=== PATIENT | male | born 1980 ===

== ENCOUNTER 2018-05-04 12:39 | Outpatient (CLI) | payer OTHER | END 2018-05-04 12:40 | disposition home or self-care (01) | LOC: SONOGRAMA 12:39 | DX: M25.521 Pain in right elbow (principal) ==

== ENCOUNTER 2024-12-05 13:36 | Emergency (ER) | payer OTHER ==
[~2024-12-05] VITALS: Ht 172.7 cm; Wt 79.4 kg
[2024-12-05] MEDS ORDERED: GUAIFENESIN/DEXTROMETHORPHAN 100MG/10ML BLIST.PACK PO ONE (15:15)
[2024-12-05 16:17] LABS: HEMATOCRIT 47.1 % (39.0-48.0); HEMOGLOBIN 15.5 g/dL (13-16.00); MEAN CELL VOLUME 79.4 fL (80.0-100.00); MEAN CORPUSCULAR HEMOGLOBIN 26.2 pg (27.00-32.0); PLATELET COUNT 173 K/uL (150-450); RED BLOOD COUNT 5.93 M/uL (4.00-6.00); RED CELL DISTRIBUTION WIDTH 14.8 % (11.5-14.5)
[2024-12-05] MEDS ORDERED: OSEL75CA PO (17:30)
[2024-12-05] MEDS ORDERED: QC TUSSIN DM L118 ML PO (17:30)
== END 2024-12-05 17:53 ==
LOC: ER 13:36
PROVIDERS: Emergency Medicine
DX: J06.9 Acute upper respiratory infection, unspecified (principal); J00 Acute nasopharyngitis [common cold]; Z20.822 Contact with and (suspected) exposure to COVID-19

== ENCOUNTER 2025-02-10 16:19 | Emergency (ER) | payer OTHER ==
[~2025-02-10] VITALS: Ht 180.3 cm; Wt 94.8 kg
[~2025-02-10 16:19] MED LIST: OSEL75CA PO; QC TUSSIN DM L118 ML PO
[2025-02-10] MEDS ORDERED: ORPHENADRINE CITRATE 30 MG/ML AMPUL IM ONE (19:00)
[2025-02-10] MEDS ORDERED: KETOROLAC TROMETHAMINE 60 MG VIAL IM ONE ×2 (19:00→19:11)
[2025-02-10] MEDS ORDERED: ORPHENADRINE CITRATE 30 MG/ML AMPUL ONE (19:11)
== END 2025-02-10 19:45 | disposition home or self-care (01) ==
LOC: ER 16:19
DX: M54.59 Other low back pain (principal); M62.830 Muscle spasm of back